=== PATIENT | female | born 1965 | race African-American/Black ===

== ENCOUNTER 2019-05-05 23:34 | Emergency (ER) | payer SELFPAY ==
[~2019-05-05] VITALS: Ht 160 cm; Wt 54.0 kg
[~2019-05-05 23:34] MED LIST: BACTRIM DS1 TAB PO; LORTAB 7.5 PO; MACROBID100 MG PO; NAPROSYN500 MG OR; TRAMADOL HCL50 MG OR; TRAMADOL HCL50 MG PO; no meds
[2019-05-06] MEDS ORDERED: CEPHALEXIN500 M1 PO (00:55)
[2019-05-06] MEDS ORDERED: NAPROSYN500 MG PO (00:55)
[2019-05-06 01:27] VITALS: BP 110/78
== END 2019-05-06 01:27 | disposition home or self-care (01) | DRG 554 ==
LOC: ED 23:34
DX: M19.012 Primary osteoarthritis, left shoulder (principal); M19.011 Primary osteoarthritis, right shoulder; J06.9 Acute upper respiratory infection, unspecified; F17.200 Nicotine dependence, unspecified, uncomplicated

== ENCOUNTER 2019-07-04 15:30 | Emergency (ER) | payer MEDICAID ==
[~2019-07-04] VITALS: Ht 160 cm; Wt 54.5 kg
[~2019-07-04 15:30] MED LIST changes: +CEPHALEXIN500 M1 PO; +NAPROSYN500 MG PO
[2019-07-04] MEDS ORDERED: TAM75CAP PO (16:25)
[2019-07-04] MEDS ORDERED: LORTAB 1010 MG PO (16:31)
[2019-07-04] MEDS ORDERED: AMOX/K CLAV875 M1 PO (16:31)
[2019-07-04] MEDS ORDERED: FLOXIN OTIC0.3 % AD (16:31)
[2019-07-04 16:34] VITALS: BP 140/83
== END 2019-07-04 16:44 | disposition home or self-care (01) ==
LOC: ED 15:30
DX: J11.1 Influenza due to unidentified influenza virus with other respiratory manifestations (principal); H66.91 Otitis media, unspecified, right ear; F17.210 Nicotine dependence, cigarettes, uncomplicated

== ENCOUNTER 2021-03-11 14:06 | Emergency (ER) | payer MEDICAID ==
[~2021-03-11] VITALS: Ht 160 cm; Wt 59.0 kg
[~2021-03-11 14:06] MED LIST changes: +AMOX/K CLAV875 M1 PO; +FLOXIN OTIC0.3 % AD; +LORTAB 1010 MG PO; +TAM75CAP PO
[2021-03-11 14:42] LABS: HEMATOCRIT 41.9 % (37.0-47.0); HEMOGLOBIN 13.3 g/dl (12.0-16.0); IMMATURE GRANULOCYTES 0.3 % (0.0-5.0); MEAN CELL VOLUME 96.8 fL CALC (80.0-100.0); MEAN CORPUSCULAR HGB 30.7 pG CALC (26.0-32.0); MEAN CORPUSCULAR HGB CONC 31.7 g/dL CAL (32.0-36.0); NEUT# 4.67 thou/uL (2.00-7.15); RED BLOOD COUNT 4.33 mill/uL (4.20-5.60); RED CELL DISTRI WIDTH 13.7 % (11.5-15.5)
[2021-03-11 14:54] LABS: ALBUMIN 4.2 g/dL (3.2-5.0); ALKALINE PHOSPHATASE 61 u/l (38-126); ANION GAP 11 (6-22 (CALC)); BILIRUBIN, TOTAL 0.8 mg/dL (0.0-1.4); BUN 17 mg/dL (7-17); BUN/CREATININE RATIO 23 (12-20 (CALC)); CARBON DIOXIDE 28 mmol/l (22-30); CHLORIDE 104 mmol/l (95-108); CREATININE 0.7 mg/dL (0.5-1.0); GFR > 60 ML/MIN (>=60 (CALC)); GFR FOR AFR.AMER. > 60 ML/MIN (>=60 (CALC)); POTASSIUM 3.9 mmol/l (3.5-5.1); SGOT/AST 28 u/l (14-36); SODIUM 138 mmol/l (137-146); TOTAL PROTEIN 7.3 g/dL (6.3-8.2)
[2021-03-11] MEDS ORDERED: LOTRISONE EX (15:04)
[2021-03-11] MEDS ORDERED: KEFLEX500 MG PO (15:04)
[2021-03-11 15:15] VITALS: BP 122/75
== END 2021-03-11 15:26 | disposition home or self-care (01) ==
LOC: ED 14:06
PROVIDERS: Emergency Medicine
DX: S80.862A Insect bite (nonvenomous), left lower leg, initial encounter (principal); S80.861A Insect bite (nonvenomous), right lower leg, initial encounter; L03.116 Cellulitis of left lower limb; L03.115 Cellulitis of right lower limb; F17.200 Nicotine dependence, unspecified, uncomplicated; W57.XXXA Bitten or stung by nonvenomous insect and other nonvenomous arthropods, initial encounter

== ENCOUNTER 2022-02-25 18:25 | Emergency (ER) | payer MEDICARE, MEDICAID ==
[~2022-02-25] VITALS: Ht 160 cm; Wt 63.0 kg
[~2022-02-25 18:25] MED LIST changes: +KEFLEX500 MG PO; +LOTRISONE EX
[2022-02-25 18:39] VITALS: BP 102/72
[2022-02-25 19:00] VITALS: BP 115/66
[2022-02-25] MEDS ORDERED: AMOX/K CLAV875 M1 PO (19:41)
[2022-02-25] MEDS ORDERED: ULTRAM50 M1 PO (19:41)
[2022-02-25 20:00] VITALS: BP 139/75
[2022-02-25 20:31] VITALS: BP 135/53
[2022-02-25 20:58] VITALS: BP 135/53
== END 2022-02-25 21:00 | disposition home or self-care (01) ==
LOC: ED 18:25
DX: S60.470A Other superficial bite of right index finger, initial encounter (principal); S60.472A Other superficial bite of right middle finger, initial encounter; S60.474A Other superficial bite of right ring finger, initial encounter; S80.871A Other superficial bite, right lower leg, initial encounter; F41.9 Anxiety disorder, unspecified; F17.210 Nicotine dependence, cigarettes, uncomplicated; W54.0XXA Bitten by dog, initial encounter; Y92.410 Unspecified street and highway as the place of occurrence of the external cause

== ENCOUNTER 2024-12-18 15:18 | Emergency (ER) | payer MEDICARE ==
[~2024-12-18] VITALS: Ht 160 cm; Wt 49.0 kg
[~2024-12-18 15:18] MED LIST changes: +METRONIDAZOLE500 MG PO; +PROVENTIL HFA108 MCG IN; +ULTRAM50 M1 PO; +VOLTAREN - GENE75 MG PO
[2024-12-18 15:35] VITALS: BP 123/61
[2024-12-18 15:45] VITALS: BP 109/80
[2024-12-18] MEDS ORDERED: AMOX/K CLAV875 M1 PO (15:51)
[2024-12-18 16:00] VITALS: BP 114/74
[2024-12-18 16:15] VITALS: BP 124/73
[2024-12-18] MEDS ORDERED: AMOXICILLIN & POT CLAVULANATE 875 MG/TAB PO ONE (16:35)
== END 2024-12-18 16:38 | disposition home or self-care (01) ==
LOC: ED 15:18
DX: H92.01 Otalgia, right ear (principal); F41.9 Anxiety disorder, unspecified; F32.A Depression, unspecified; F17.200 Nicotine dependence, unspecified, uncomplicated